=== PATIENT | female | born 1940 | race Caucasian/White ===

== ENCOUNTER 2017-11-09 11:12 | Inpatient (IN) | payer OTHER ==
[~2017-11-09] VITALS: Ht 160 cm; Wt 78.9 kg
[2017-11-09] MEDS ORDERED: MAG HYDROX/AL HYDROX/SIMETH 30 ML UDC PO PRN (13:30)
[2017-11-09] MEDS ORDERED: LORAZEPAM 0.5 MG TABLET PO PRN (13:30)
[2017-11-09] MEDS ORDERED: ACETAMINOPHEN 325 MG TABLET PO PRN (13:30)
[2017-11-09] MEDS ORDERED: ASPI-1169 PO (13:42)
[2017-11-09] MEDS ORDERED: ASCO500T9 PO (13:42)
[2017-11-09] MEDS ORDERED: LISI10TA5 PO (13:42)
[2017-11-09] MEDS ORDERED: DOCU-141 PO (13:42)
[2017-11-09] MEDS ORDERED: VIT1CAPS9 PO (13:42)
[2017-11-09] MEDS ORDERED: SIMV40TA5 PO (13:42)
[2017-11-09] MEDS ORDERED: CARI350T27 PO (13:42)
[2017-11-09] MEDS ORDERED: ERGO500014 PO (13:42)
[2017-11-09] MEDS ORDERED: OXYC-128 PO (13:42)
[2017-11-09] MEDS ORDERED: FERR325T23 PO (13:42)
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
[2017-11-09] MEDS: HALOPERIDOL 1 MG TABLET PO SCH (15:11)
[2017-11-09 16:00] VITALS: BP 153/85
[2017-11-09] MEDS: DOCUSATE SODIUM 100 MG CAPSULE PO SCH (16:56)
[2017-11-09] MEDS: CARISOPRODOL 350 MG TABLET PO SCH (16:56)
[2017-11-09] MEDS: FERROUS SULFATE (325 MG) 325 MG/TAB TABLET PO SCH (16:56)
[2017-11-09] MEDS: TEMAZEPAM 7.5 MG CAPSULE PO PRN (21:22)
[2017-11-09] MEDS: SIMVASTATIN 40 MG TABLET PO SCH (21:22)
--- NOTE | 2017-11-09 21:23 | NUR ---
TEMAZEPAM 7.5 MG CAP 1 PO GIVEN FOR SLEEP AND COMFORT.
[2017-11-10 06:49] LABS: ALANINE AMINOTRANSFERASE 16 U/L (12-78); ALBUMIN 3.2 g/dL (3.4-5.0); ALKALINE PHOSPHATASE 73 U/L (46-116); ASPARTATE AMINOTRANSFERASE 15 U/L (15-37); BILIRUBIN,TOTAL 0.4 mg/dL (0.2-1.0); CALCIUM, SERUM 10.1 mg/dL (8.5-10.1); CARBON DIOXIDE 30 mmol/L (21-32); CHLORIDE 106 mmol/L (98-107); CREATININE 0.9 mg/dL (0.6-1.3); GLUCOSE 114 mg/dL (74-106); MAGNESIUM 1.6 mg/dL (1.8-2.4); PHOSPHORUS 2.8 mg/dL (2.5-4.9); POTASSIUM 4.3 mmol/L (3.5-5.1); SODIUM SERUM 142 mmol/L (136-145); TOTAL PROTEIN, SERUM 6.4 g/dL (6.4-8.2); UREA NITROGEN, BLOOD 19 mg/dL (7-18)
[2017-11-10 06:55] LABS: CHOLESTEROL 152 mg/dL (<200); HDL CHOLESTEROL 46 mg/dL (40-60); LDL 96 mg/dL (0-99); THYROID STIMULATING HORMONE 1.981 uIU/mL (0.358-3.74); TRIGLYCERIDES 104 mg/dL (30-150)
[2017-11-10 08:00] VITALS: BP 126/66
[2017-11-10 08:05] LABS: WHITE BLOOD COUNT (AUTO) 9.2 K/uL (4.3-11.0)
[2017-11-10 08:06] LABS: EOSINOPHILS % (AUTO) 3.7 % (0.0-6.0); HEMATOCRIT 42 % (33-45); HEMOGLOBIN 14.1 g/dL (11.5-14.8); LYMPHOCYTES % (AUTO) 35.4 % (20.0-44.0); MEAN CORPUSCULAR HGB CONC 33 g/dl (31.0-36.0); MEAN CORPUSCULAR VOLUME 95 fL (82-100); MONOCYTES % (AUTO) 15.1 % (2.0-12.0); NEUTROPHILS % (AUTO) 45.8 % (43.0-81.0); PLATELET COUNT (AUTO) 157 /CMM (150-450); RDW COEFFICIENT OF VARIATION 13.4 (11.5-15.0); RED BLOOD CELL COUNT(AUTO) 4.49 MIL/uL (4.0-5.2)
[2017-11-10 08:07] LABS: LYMPHOCYTES # (AUTO) 3.3 /CMM (0.8-4.8); MONOCYTES # (AUTO) 1.4 /CMM (0.1-1.30); NEUTROPHILS # (AUTO) 4.2 /CMM (1.8-8.9)
[2017-11-10] MEDS: HALOPERIDOL 1 MG TABLET PO SCH ×2 (09:13→18:05)
[2017-11-10] MEDS: MULTIVITAMIN/LUTEIN/MINERALS 1 TAB PO SCH (09:13)
[2017-11-10] MEDS: DOCUSATE SODIUM 100 MG CAPSULE PO SCH ×2 (09:13→18:05)
[2017-11-10] MEDS: ASCORBIC ACID 500 MG TABLET PO SCH (09:13)
[2017-11-10] MEDS: ASPIRIN 81 MG TAB.CHEW PO SCH (09:13)
[2017-11-10] MEDS: FERROUS SULFATE (325 MG) 325 MG/TAB TABLET PO SCH ×2 (09:13→18:05)
[2017-11-10] MEDS: CARISOPRODOL 350 MG TABLET PO SCH ×2 (09:13→18:05)
[2017-11-10] MEDS: LISINOPRIL (10MG) 10 MG TABLET PO SCH (09:14)
[2017-11-10] MEDS ORDERED: MAGNESIUM OXIDE 400 MG TABLET PO ONE (09:30)
--- NOTE | 2017-11-10 12:34 | NUR ---
SW attempted to contact pts son Panfilo [phone] for collateral information and discharge planning. SW unable to reach and left a voicemail for callback.
--- NOTE | 2017-11-10 14:26 | NUR ---
INITIAL DISCHARGE PLAN: Patient wishes to be discharged [address] [place] [address] . Pt attempted to contact pts son Panfilo [phone] to discuss discharge plan, SW was unable to contact and left a voicemail for callback. SW will help form a safe and proper discharge in collaboration with MD and family. Addendum: 11/13/17 at 0905 by BRANDY WISEMAN SW attempted to contact pts [place] Whittaker [phone] to discuss discharge plan, SW was unable to contact and left a voicemail for callback.
[2017-11-10 16:00] VITALS: BP 104/59
[2017-11-10 20:00] VITALS: BP 100/53
--- NOTE | 2017-11-10 20:50 | NUR ---
ACCUCHECK = 132 MG/DL, NO SLIDIN SCALE ORDERED.
[2017-11-10] MEDS: BLOOD SUGAR DIAGNOSTIC 1 EACH STRIP IN SCH (21:20)
[2017-11-10] MEDS: TEMAZEPAM 7.5 MG CAPSULE PO PRN (21:20)
[2017-11-10] MEDS: SIMVASTATIN 40 MG TABLET PO SCH (21:20)
--- NOTE | 2017-11-10 21:21 | NUR ---
TEMAZEPAM 7.5 MG CAP PO GIVEN FOR REST AND SLEEP.
[2017-11-11 08:00] VITALS: BP 105/54
[2017-11-11] MEDS: ASPIRIN 81 MG TAB.CHEW PO SCH (08:55)
[2017-11-11] MEDS: METFORMIN 500 MG TABLET PO SCH ×2 (08:55→18:05)
[2017-11-11] MEDS: BLOOD SUGAR DIAGNOSTIC 1 EACH STRIP IN SCH ×4 (08:55→21:34)
[2017-11-11] MEDS: DOCUSATE SODIUM 100 MG CAPSULE PO SCH ×2 (08:55→18:05)
[2017-11-11] MEDS: HALOPERIDOL 1 MG TABLET PO SCH ×2 (08:56→18:04)
[2017-11-11] MEDS: ASCORBIC ACID 500 MG TABLET PO SCH (08:56)
[2017-11-11] MEDS: FERROUS SULFATE (325 MG) 325 MG/TAB TABLET PO SCH ×2 (08:56→18:05)
[2017-11-11] MEDS: LISINOPRIL (10MG) 10 MG TABLET PO SCH (08:56)
[2017-11-11] MEDS: MULTIVITAMIN/LUTEIN/MINERALS 1 TAB PO SCH (08:56)
[2017-11-11] MEDS: CARISOPRODOL 350 MG TABLET PO SCH ×2 (08:56→18:05)
--- NOTE | 2017-11-11 11:01 | NUR ---
GPS/RN . PT IS AMBULATORY AND CONTINENT.URINE COLLECTION CONTAINER( HAT) GIVEN TO THE PT IN AM AND EXPLAINED THE PROCEDURE TO COLLECT URINE SPECIMEN. NO SAMPLE AVAILABLE YET. WILL CONTINUE TO ENCOURAGE PT TO COLLECT URINE SAMPLE.
[2017-11-11 12:32] LABS: BILIRUBIN,URINE NEGATIVE (NEGATIVE); BLOOD, URINE NEGATIVE Ery/uL (NEGATIVE); COLOR,URINE YELLOW (YELLOW); KETONES,URINE NEGATIVE (NEGATIVE); LEUKOCYTE ESTERASE ,URINE 1+ (NEGATIVE); NITRITE, URINE POSITIVE (NEGATIVE); PH,URINE 6.5 (5.0-8.0); PROTEIN,URINE NEGATIVE (NEGATIVE); UGLUCOSE NEGATIVE (NEGATIVE); UROBILINOGEN,URINE 0.2 EU/dL (0.2)
[2017-11-11 12:39] LABS: BACTERIA,URINE Many /HPF (None Seen); RBC,URINE 0-2 /HPF (0-2); SQUAMOUS EPITHELIAL CELL,UR Few /HPF (None Seen)
[2017-11-11 13:18] LABS: APPEARANCE,URINE SLIGHTLY CLOUDY (CLEAR)
[2017-11-11 16:03] VITALS: BP 105/59
[2017-11-11 20:00] VITALS: BP 139/67
[2017-11-11] MEDS ORDERED: CEPHALEXIN MONOHYDRATE 500 MG CAPSULE PO SCH (21:00)
[2017-11-11] MEDS: NITROFURANTOIN/NITROFURAN MAC 100 MG CAPSULE PO SCH (21:34)
[2017-11-11] MEDS: SIMVASTATIN 40 MG TABLET PO SCH (21:34)
[2017-11-12] MEDS: BLOOD SUGAR DIAGNOSTIC 1 EACH STRIP IN SCH ×4 (07:30→22:12)
[2017-11-12 08:00] VITALS: BP 135/72
[2017-11-12] MEDS: METFORMIN 500 MG TABLET PO SCH ×2 (08:20→16:21)
[2017-11-12] MEDS: DOCUSATE SODIUM 100 MG CAPSULE PO SCH ×2 (08:20→16:21)
[2017-11-12] MEDS: FERROUS SULFATE (325 MG) 325 MG/TAB TABLET PO SCH ×2 (08:21→16:22)
[2017-11-12] MEDS: ASPIRIN 81 MG TAB.CHEW PO SCH (08:21)
[2017-11-12] MEDS: ASCORBIC ACID 500 MG TABLET PO SCH (08:21)
[2017-11-12] MEDS: LISINOPRIL (10MG) 10 MG TABLET PO SCH (08:21)
[2017-11-12] MEDS: NITROFURANTOIN/NITROFURAN MAC 100 MG CAPSULE PO SCH ×2 (08:21→20:49)
[2017-11-12] MEDS: HALOPERIDOL 1 MG TABLET PO SCH ×2 (08:21→16:22)
[2017-11-12] MEDS: CARISOPRODOL 350 MG TABLET PO SCH ×2 (08:21→16:22)
[2017-11-12] MEDS: MULTIVITAMIN/LUTEIN/MINERALS 1 TAB PO SCH (08:21)
[2017-11-12] MEDS ORDERED: ERGOCALCIFEROL (VITAMIN D 2) 50,000 UNIT CAPSULE PO SCH (09:00)
[2017-11-12 16:00] VITALS: BP 100/61
[2017-11-12] MEDS: BENZTROPINE MESYLATE (1 MG) 1 MG TABLET PO SCH (16:22)
--- NOTE | 2017-11-12 19:22 | NUR ---
gps/rn opening notes RECEIVED PATIENT, ALERT, WITH NO S/S OF CHANGES CHANGES IN BEHAVIOR, RECEIVED ENDORSEMENT FROM AM RN FOR THOMAS. MOLLYN TO MONITOR S/S OF HYPO/HYPERG;YCEMIA. WILL CONTINUE TO MONITOR.
[2017-11-12 19:58] VITALS: BP 100/61
[2017-11-12 20:00] VITALS: BP 127/61
[2017-11-12 20:07] VITALS: BP 127/61
[2017-11-12] MEDS: SIMVASTATIN 40 MG TABLET PO SCH (21:06)
[2017-11-13] MEDS: BLOOD SUGAR DIAGNOSTIC 1 EACH STRIP IN SCH ×4 (07:10→21:07)
--- NOTE | 2017-11-13 07:16 | NUR ---
GPS/RN NOTES BLOOD SUGAR CHECK AT 105
[2017-11-13 08:00] VITALS: BP 130/70
[2017-11-13] MEDS: DOCUSATE SODIUM 100 MG CAPSULE PO SCH ×2 (08:51→16:48)
[2017-11-13] MEDS: ASPIRIN 81 MG TAB.CHEW PO SCH (08:51)
[2017-11-13] MEDS: HALOPERIDOL 1 MG TABLET PO SCH (08:51)
[2017-11-13] MEDS: ASCORBIC ACID 500 MG TABLET PO SCH (08:51)
[2017-11-13] MEDS: FERROUS SULFATE (325 MG) 325 MG/TAB TABLET PO SCH ×2 (08:51→16:48)
[2017-11-13] MEDS: MULTIVITAMIN/LUTEIN/MINERALS 1 TAB PO SCH (08:51)
[2017-11-13] MEDS: LISINOPRIL (10MG) 10 MG TABLET PO SCH (08:57)
[2017-11-13] MEDS: BENZTROPINE MESYLATE (1 MG) 1 MG TABLET PO SCH ×2 (08:57→16:48)
[2017-11-13] MEDS: CARISOPRODOL 350 MG TABLET PO SCH ×2 (08:58→16:48)
[2017-11-13] MEDS: NITROFURANTOIN/NITROFURAN MAC 100 MG CAPSULE PO SCH ×2 (09:01→20:38)
--- NOTE | 2017-11-13 09:05 | NUR ---
SW attempted to contact pts son Panfilo [phone] to discuss discharge plan, SW was unable to contact and left a voicemail for callback.
--- NOTE | 2017-11-13 09:17 | NUR ---
UR NOTE: IVONE faxed clinical review to Hannah from [facility]: [phone] P: [phone] ex 223.
[2017-11-13] MEDS: METFORMIN 500 MG TABLET PO SCH ×2 (10:24→16:48)
[2017-11-13 16:00] VITALS: BP 114/56
[2017-11-13] MEDS: HALOPERIDOL 5 MG TABLET PO SCH (18:23)
[2017-11-13 20:08] VITALS: BP 107/48
[2017-11-13] MEDS: TEMAZEPAM 7.5 MG CAPSULE PO PRN (20:38)
--- NOTE | 2017-11-13 20:43 | NUR ---
AT 2037 TEMAZEPAM 7.5 MG CAP PO GIVEN
[2017-11-13] MEDS: MAGNESIUM HYDROXIDE 30 ML UDC PO PRN (20:55)
--- NOTE | 2017-11-13 20:56 | NUR ---
MILK OF MAGNESIA 30 ML PO GIVEN, C/O CONSTIPATION.
[2017-11-13] MEDS: SIMVASTATIN 40 MG TABLET PO SCH (21:07)
--- NOTE | 2017-11-13 21:24 | NUR ---
ACCUCHECK = 142 MG/DL, NO INSULIN SLIDING SCALE ORDERED.
[2017-11-14] MEDS: BLOOD SUGAR DIAGNOSTIC 1 EACH STRIP IN SCH ×4 (07:57→21:15)
[2017-11-14 08:00] VITALS: BP 118/59
--- NOTE | 2017-11-14 08:40 | NUR ---
SW attempted to contact pts son Panfilo [phone] to discuss discharge plan, SW was unable to contact and left a voicemail for callback.
[2017-11-14] MEDS ORDERED: HALOPERIDOL DECANOATE IM 100 MG/ML AMPUL IM SCH (09:00)
[2017-11-14] MEDS: NITROFURANTOIN/NITROFURAN MAC 100 MG CAPSULE PO SCH ×2 (09:07→20:18)
[2017-11-14] MEDS: BENZTROPINE MESYLATE (1 MG) 1 MG TABLET PO SCH ×2 (09:07→17:00)
[2017-11-14] MEDS: MULTIVITAMIN/LUTEIN/MINERALS 1 TAB PO SCH (09:07)
[2017-11-14] MEDS: ASCORBIC ACID 500 MG TABLET PO SCH (09:07)
[2017-11-14] MEDS: CARISOPRODOL 350 MG TABLET PO SCH ×2 (09:08→17:00)
[2017-11-14] MEDS: LISINOPRIL (10MG) 10 MG TABLET PO SCH (09:08)
[2017-11-14] MEDS: HALOPERIDOL 5 MG TABLET PO SCH ×2 (09:08→17:06)
[2017-11-14] MEDS: DOCUSATE SODIUM 100 MG CAPSULE PO SCH ×2 (09:08→17:06)
[2017-11-14] MEDS: FERROUS SULFATE (325 MG) 325 MG/TAB TABLET PO SCH ×2 (09:08→17:06)
[2017-11-14] MEDS: ASPIRIN 81 MG TAB.CHEW PO SCH (09:08)
--- NOTE | 2017-11-14 09:28 | NUR ---
UR NOTE: IVONE faxed clinical review to Hannah from [facility]: [phone] P: [phone] ex 223.
--- NOTE | 2017-11-14 09:30 | NUR ---
SW attempted to contact pts son Panfilo [phone] to discuss discharge plan, SW was unable to contact and left a voicemail for callback.
[2017-11-14] MEDS: METFORMIN 500 MG TABLET PO SCH ×2 (10:04→17:00)
[2017-11-14] MEDS: MAGNESIUM HYDROXIDE 30 ML UDC PO PRN (10:04)
--- NOTE | 2017-11-14 11:45 | NUR ---
SW contacted contact pts son Panfilo [phone] to arrange transportation for discharge on 11/16/17. Pts son will be picking pts up at 5:30pm via private vehicle and transporting home.
[2017-11-14 16:00] VITALS: BP 123/56
[2017-11-14] MEDS ORDERED: CIPROFLOXACIN HCL 250 MG TABLET PO SCH (17:00)
[2017-11-14 20:31] VITALS: BP 106/46
[2017-11-14] MEDS: SIMVASTATIN 40 MG TABLET PO SCH (21:15)
[2017-11-14] MEDS: TEMAZEPAM 7.5 MG CAPSULE PO PRN (21:15)
--- NOTE | 2017-11-14 21:16 | NUR ---
TEMAZEPAM 7.5 MG CAP 1 PO GIVEN FOR SLEEP.
[2017-11-15] MEDS: BLOOD SUGAR DIAGNOSTIC 1 EACH STRIP IN SCH ×4 (07:58→21:29)
[2017-11-15 08:00] VITALS: BP 111/56
--- NOTE | 2017-11-15 09:06 | NUR ---
UR NOTE: IVONE faxed clinical review to Hannah from [facility]: [phone] P: [phone] ex 223.
[2017-11-15] MEDS: HALOPERIDOL 5 MG TABLET PO SCH ×2 (09:16→16:21)
[2017-11-15] MEDS: ASPIRIN 81 MG TAB.CHEW PO SCH (09:17)
[2017-11-15] MEDS: LISINOPRIL (10MG) 10 MG TABLET PO SCH (09:17)
[2017-11-15] MEDS: METFORMIN 500 MG TABLET PO SCH ×2 (09:17→16:21)
[2017-11-15] MEDS: NITROFURANTOIN/NITROFURAN MAC 100 MG CAPSULE PO SCH ×2 (09:17→21:28)
[2017-11-15] MEDS: DOCUSATE SODIUM 100 MG CAPSULE PO SCH ×2 (09:17→16:21)
[2017-11-15] MEDS: MULTIVITAMIN/LUTEIN/MINERALS 1 TAB PO SCH (09:17)
[2017-11-15] MEDS: ASCORBIC ACID 500 MG TABLET PO SCH (09:17)
[2017-11-15] MEDS: FERROUS SULFATE (325 MG) 325 MG/TAB TABLET PO SCH ×2 (09:17→16:21)
[2017-11-15] MEDS: CARISOPRODOL 350 MG TABLET PO SCH ×2 (09:17→16:21)
[2017-11-15] MEDS: BENZTROPINE MESYLATE (1 MG) 1 MG TABLET PO SCH ×2 (09:17→16:21)
--- NOTE | 2017-11-15 13:40 | NUR ---
UR NOTE: IVONE received a phone call from June [phone] point of care technician at [facility] requesting discharge date. IVONE also informed June that pt needs psych follow-up appointments. June stated she would call IVONE back with follow-up information.
[2017-11-15 16:00] VITALS: BP 134/86
--- NOTE | 2017-11-15 16:00 | NUR ---
UR NOTE: IVONE contacted June keycase assembler P: [phone] ex [phone] for follow up appointments for pt. IVONE left voicemail for call back.
[2017-11-15 20:00] VITALS: BP 138/67
[2017-11-15] MEDS: SIMVASTATIN 40 MG TABLET PO SCH (21:28)
[2017-11-16] MEDS: BLOOD SUGAR DIAGNOSTIC 1 EACH STRIP IN SCH ×3 (07:44→17:05)
[2017-11-16 08:00] VITALS: BP 113/69
[2017-11-16] MEDS: MULTIVITAMIN/LUTEIN/MINERALS 1 TAB PO SCH (08:46)
[2017-11-16] MEDS: ASPIRIN 81 MG TAB.CHEW PO SCH (08:46)
[2017-11-16] MEDS: FERROUS SULFATE (325 MG) 325 MG/TAB TABLET PO SCH ×2 (08:46→16:40)
[2017-11-16] MEDS: NITROFURANTOIN/NITROFURAN MAC 100 MG CAPSULE PO SCH (08:46)
[2017-11-16] MEDS: DOCUSATE SODIUM 100 MG CAPSULE PO SCH ×2 (08:46→16:40)
[2017-11-16] MEDS: HALOPERIDOL 5 MG TABLET PO SCH ×2 (08:47→16:40)
[2017-11-16] MEDS: METFORMIN 500 MG TABLET PO SCH ×2 (08:47→16:40)
[2017-11-16] MEDS: BENZTROPINE MESYLATE (1 MG) 1 MG TABLET PO SCH ×2 (08:47→16:40)
[2017-11-16] MEDS: ASCORBIC ACID 500 MG TABLET PO SCH (08:47)
[2017-11-16] MEDS: CARISOPRODOL 350 MG TABLET PO SCH ×2 (08:47→16:40)
[2017-11-16] MEDS: LISINOPRIL (10MG) 10 MG TABLET PO SCH (08:48)
--- NOTE | 2017-11-16 09:48 | NUR ---
SW contacted contact pts son Panfilo [phone] to inform him of pts follow-up appointments: 1.11/22/17 10am with Emely Fontanez NP for Pscy Eval/Med Management: HCP site: [facility] [place] [address] Press 6 2.12/06/17 9:15am with Gianni for Individual Therapy @ [facility] [address] [place] [address]
--- NOTE | 2017-11-16 09:49 | NUR ---
IVONE faxed Continuing Care Packet to [facility] with [facility]: Emely Fontanez RN SOCIAL SERVICES for Pscy Eval/Med Management: HCP site: [place] [facility] [place] [address]
--- NOTE | 2017-11-16 12:15 | NUR ---
GPS/RN-NOTES RECEIVED T.O ORDER FROM DR. NUNEZ FOR A HOME HEALTH SERVICES ,IVONE NAVA MADE AWARE.
--- NOTE | 2017-11-16 14:47 | NUR ---
DISCHARGE NOTE: Pt being discharged at 5:30pm [place] [address]. Pts son Panfilo [phone] will be picking pt up via private vehicle and transporting home. Pts mood is pleasant with congruent affect and denies suicidal/homicidal ideations and denies visual/auditory hallucinations. Pt has a follow up appointment on 11/22/17 at 10am with Emely Fontanez DIRECTOR OF DESIGN for Pscy Eval/Med Management:[facility] [address] [place] [address] and a scheduled appointment on 12/06/17 9:15am with Gianni for Individual Therapy @ [address] [place] [address] . Pt will schedule a follow up appointment with Assistant Program Manager Dr. Raj Denis [address] [address] [phone]. The multidisciplinary exitcare form was done, printed, signed, and given to the patient.
[2017-11-16 16:00] VITALS: BP 117/64
--- NOTE | 2017-11-16 17:30 | NUR ---
GPS/RN-NOTES PATIENT BLOOD SUGAR WAS 162MG/DL,NO COVERAGE ORDER.
--- NOTE | 2017-11-16 18:00 | NUR ---
GPS/RN-NOTES PATIENT WAS DISCHARGE HOME TODAY. DR. ALEXANDRA AND DR. NUNEZ AWARE AND AGREES FOR PATIENT DISCHARGE WITH ORDERS. PATIENT DID NOT VERBALIZE SI/HI,DENIES VISUAL AUDITORY HALLUCINATIONS AT THE TIME OF DISCHARGE. ENGINEERING LAB TECHNICIAN BY SON VIA PRIVATE CAR.ALL DISCHARGE MEDICATIONS WAS REVIEWED WITH PATIENT AND SON. DISCHARGE PAPERS INCLUDING RX AND APPOINTMENT LIST WAS GIVEN TO PATIENT'S SON. PATIENT LEFT THE UNIT IN STABLE CONDITION,ALERT ORIENTED X3,AMBULATORY WITH STEADY GAIT. ASSISTED BY ONE CAT SCANNER OPERATOR IN THE LOBBY FOR SAFETY WITH ALL HER BELONGINGS. CAR ALVARADO AND PATIENT'S SOUND EFFECTS MANAGER LICENCE WAS ALSO GIVEN TO THE PATIENT'S SON.
--- NOTE | 2017-11-17 16:26 | NUR ---
IVONE faxed home health referral to [facility] Address: [address] [facility] [address], [place] [address] .
== END 2017-11-16 18:00 | disposition home or self-care (01) | DRG 885 ==
LOC: GPS 12:52
PROVIDERS: ADMIT Psychiatry & Neurology Psychiatry; ATTEND Registered Nurse
DX: F20.0 Paranoid schizophrenia (principal); N17.0 Acute kidney failure with tubular necrosis; N39.0 Urinary tract infection, site not specified; E11.9 Type 2 diabetes mellitus without complications; E78.5 Hyperlipidemia, unspecified; E83.42 Hypomagnesemia; E88.09 Other disorders of plasma-protein metabolism, not elsewhere classified; I10 Essential (primary) hypertension; B96.20 Unspecified Escherichia coli [E. coli] as the cause of diseases classified elsewhere; F31.9 Bipolar disorder, unspecified; Z73.6 Limitation of activities due to disability
CPT/HCPCS: 36415; 80048-TC; 80053-TC; 80061-TC; 81000-TC; 82962-TC; 83735-TC; 84100-TC; 84443-TC; 85025-TC; 87081-TC; 87086-TC; 87186-TC; J1631